=== PATIENT | male | born 1985 | race Two or more races ===

== ENCOUNTER 2017-01-30 14:28 | Emergency (ER) | payer SELFPAY ==
[~2017-01-30] VITALS: Ht 170.2 cm; Wt 79.4 kg
[2017-01-30 14:31] VITALS: BP 110/71
== END 2017-01-30 15:56 | disposition home or self-care (01) ==
LOC: ER 14:33
DX: S46.912A Strain of unspecified muscle, fascia and tendon at shoulder and upper arm level, left arm, initial encounter (principal); V43.52XA Car driver injured in collision with other type car in traffic accident, initial encounter; Y93.89 Activity, other specified; Y99.8 Other external cause status; Y92.488 Other paved roadways as the place of occurrence of the external cause

== ENCOUNTER 2022-10-01 19:19 | Emergency (ER) | payer MEDICAID ==
[~2022-10-01] VITALS: Ht 170.2 cm; Wt 100.0 kg
[2022-10-01 20:09] VITALS: BP 133/97
[2022-10-01 22:51] LABS: Urine Bacteria NONE SEEN /hpf (None Seen); Urine Blood Negative /uL (Negative); Urine Specific Gravity 1.015 (1.001-1.035); Urine WBC 9 /hpf (0 - 3)
[2022-10-01] MEDS ORDERED: SULF400T11 PO (23:04)
[2022-10-01] MEDS ORDERED: cefTRIAXone SOD 1,000 MG VL IM ONE (23:15)
== END 2022-10-01 23:19 | disposition home or self-care (01) ==
LOC: ER 19:19
DX: N48.21 Abscess of corpus cavernosum and penis (principal); N39.0 Urinary tract infection, site not specified
CPT/HCPCS: 81001; 96372; 99283; J0696